=== PATIENT | male | born 1940 | race Caucasian/White ===

== ENCOUNTER 2022-02-11 15:04 | Emergency (ER) | payer MEDICARE, OTHER | END 2022-02-11 17:51 | disposition home or self-care (01) | LOC: MW.ED 15:04 | DX: S80.11XA Contusion of right lower leg, initial encounter (principal); I48.91 Unspecified atrial fibrillation; Z88.5 Allergy status to narcotic agent; W22.09XA Striking against other stationary object, initial encounter | CPT/HCPCS: 93971-26-RT; 93971-RT; 99283; 99283-25 ==